=== PATIENT | male | born 1950 | race Caucasian/White ===

== ENCOUNTER → 2021-04-29 | Outpatient (CLI) | payer OTHER | END | disposition home or self-care (01) | LOC: PPH VACUNA 08:00 | PROVIDERS: ATTEND Emergency Medicine Pediatric Emergency Medicine | DX: Z23 Encounter for immunization (principal) ==

== ENCOUNTER 2021-06-24 10:51 | Outpatient (CLI) | payer OTHER | END 2021-06-24 15:12 | disposition home or self-care (01) | LOC: RAD 10:51 | PROVIDERS: ATTEND Physical Medicine & Rehabilitation | DX: M79.641 Pain in right hand (principal) ==

== ENCOUNTER 2022-11-16 08:37 | Outpatient (CLI) | payer OTHER | END 2022-11-16 08:44 | disposition home or self-care (01) | LOC: TOM 08:37 | DX: R53.1 Weakness (principal); R29.810 Facial weakness ==

== ENCOUNTER → 2022-12-14 07:45 | Outpatient (CLI) | payer OTHER | END | disposition home or self-care (01) | LOC: NUCLEAR 12-07 07:00 | PROVIDERS: ATTEND Internal Medicine Cardiovascular Disease | DX: I20.9 Angina pectoris, unspecified (principal); Z82.49 Family history of ischemic heart disease and other diseases of the circulatory system | CPT/HCPCS: 78452; 93017; A9500; J0153 ==

== ENCOUNTER 2022-12-22 09:52 | Outpatient (CLI) | payer OTHER | END 2022-12-22 09:54 | disposition home or self-care (01) | LOC: NUCLEAR 09:52 | DX: M79.661 Pain in right lower leg (principal); M79.662 Pain in left lower leg; R60.0 Localized edema; I73.9 Peripheral vascular disease, unspecified ==

== ENCOUNTER 2022-12-29 09:58 | Outpatient (CLI) | payer OTHER | END 2022-12-29 10:05 | disposition home or self-care (01) | LOC: NUCLEAR 09:58 | DX: M79.661 Pain in right lower leg (principal); M79.662 Pain in left lower leg; R60.0 Localized edema; I73.9 Peripheral vascular disease, unspecified ==

== ENCOUNTER 2023-01-19 07:46 | Outpatient (CLI) | payer OTHER | END 2023-01-19 13:13 | disposition home or self-care (01) | LOC: TOM 07:46 | DX: C64.2 Malignant neoplasm of left kidney, except renal pelvis (principal) | CPT/HCPCS: 74178; Q9965 ==

== ENCOUNTER 2023-01-25 12:09 | Outpatient (CLI) | payer OTHER | END 2023-01-25 16:22 | disposition home or self-care (01) | LOC: RAD 12:09 | PROVIDERS: ATTEND Urology | DX: C65.2 Malignant neoplasm of left renal pelvis (principal); I11.9 Hypertensive heart disease without heart failure ==

== ENCOUNTER 2023-01-25 13:03 | Outpatient (CLI) | payer OTHER | END 2023-01-25 13:04 | disposition home or self-care (01) | LOC: NUCLEAR 13:03 | DX: I11.9 Hypertensive heart disease without heart failure (principal); C65.2 Malignant neoplasm of left renal pelvis ==

== ENCOUNTER 2023-09-28 13:30 | Outpatient (CLI) | payer OTHER ==
[~2023-09-28 13:30] MED LIST: ALLOPURINOL300 MG; AMLODIPINE BESY10 MG PO; COLCHICINE0.6 MG PO; CRESTOR10 MG PO; DITROPAN XL5 MG; FUSION PLUS CA1 EACH; IRBESARTAN-HCT1 EAC1 PO; NORVASC10 MG PO; TAMS0.4C PO; TOPROL XL50 M1 PO
== END 2023-09-28 13:40 | disposition home or self-care (01) ==
LOC: RAD 13:30
DX: M25.562 Pain in left knee (principal)

== ENCOUNTER 2024-05-19 07:30 | Outpatient (CLI) | payer OTHER | END 2024-05-19 07:32 | disposition home or self-care (01) | LOC: NUCLEAR 07:30 | PROVIDERS: ATTEND Internal Medicine Hematology & Oncology | DX: C64.2 Malignant neoplasm of left kidney, except renal pelvis (principal) | CPT/HCPCS: 78816; A9552 ==

== ENCOUNTER 2024-11-21 13:18 | Outpatient (CLI) | payer OTHER | END 2024-11-21 13:30 | disposition home or self-care (01) | LOC: RAD 13:18 | PROVIDERS: ATTEND Physical Medicine & Rehabilitation | DX: M54.2 Cervicalgia (principal); M25.512 Pain in left shoulder ==

== ENCOUNTER 2025-04-23 10:49 | Outpatient (CLI) | payer OTHER | END 2025-04-23 10:58 | disposition home or self-care (01) | LOC: SONOGRAMA 10:49 | PROVIDERS: ATTEND Specialist/Technologist, Other Nephrology | DX: R10.9 Unspecified abdominal pain (principal); N18.30 Chronic kidney disease, stage 3 unspecified; R31.9 Hematuria, unspecified ==

== ENCOUNTER 2025-05-21 07:29 | Outpatient (CLI) | payer OTHER | END 2025-05-21 07:34 | disposition home or self-care (01) | LOC: NUCLEAR 07:29 | PROVIDERS: ATTEND Internal Medicine Hematology & Oncology | DX: C64.2 Malignant neoplasm of left kidney, except renal pelvis (principal) | CPT/HCPCS: 78816; A9552 ==